=== PATIENT | female | born 1985 | race Caucasian/White ===

== ENCOUNTER 2021-02-24 01:07 | Inpatient (IN) | payer MEDICAID, OTHER ==
[~2021-02-24] VITALS: Ht 162.6 cm; Wt 125.0 kg
[2021-02-24 02:02] LABS: Basophils # (auto) 0 10 ^3/uL (0-0.2); Basophils % (auto) 0.3 % (0.0-2.0); Eosinophils # (auto) 0 10 ^3/uL (0-0.8); Eosinophils % (auto) 0.3 % (0.0-7.0); Hematocrit 41.5 % (36.0-46.0); Hemoglobin 13.9 g/dL (12.2-16.2); Lymphocytes # (auto) 2.5 10 ^3/uL (0.4-5.4); Lymphocytes % (auto) 24.6 % (10.0-50.0); Mean Corpuscular Hemoglobin 28.5 pg (28.0-32.0); Mean Corpuscular Hgb Conc. 33.4 g/dL (32.0-36.0); Mean Corpuscular Volume 85.3 fL (80.0-100.0); Monocytes # (auto) 0.7 10 ^3/uL (0-1.3); Monocytes % (auto) 6.7 % (0.0-12.0); Neutrophils # (auto) 6.9 10 ^3/uL (1.6-8.6); Neutrophils % (auto) 68.1 % (37.0-80.0); Nucleated Red Blood Cells % 0.1 %; Red Blood Cells 4.86 10^6/uL (4.0-5.20); Red Cell Distribution Width 15.9 % (11.8-14.3); White Blood Cell 10.1 10^3/uL (4.4-10.8)
[2021-02-24 02:21] LABS: Albumin 3.1 g/dL (3.4-5.0); BUN/Creatinine Ratio 13.1; Potassium 4.8 mmol/L (3.5-5.1)
[2021-02-24 02:24] LABS: Bilirubin, Total 0.1 mg/dL (0.2-1.0); Total Protein 7.2 g/dL (6.4-8.2)
[2021-02-24] MEDS ORDERED: MORPHINE SULFATE 4 MG/ML SYR/VIAL IV ONE (02:45)
[2021-02-24] MEDS ORDERED: ONDANSETRON HCL 4 MG/2 ML VIAL IV ONE (02:45)
[2021-02-24] MEDS ORDERED: SODIUM CHLORIDE 0.9% 1,000 ML IV ONE ×2 (04:30)
[2021-02-24] MEDS ORDERED: TAMSULOSIN HYDROCHLORIDE 0.4 MG CAP PO ONE ×2 (04:30→11:45)
[2021-02-24] MEDS ORDERED: HYDROcodone-ACET 5/325MG TAB PO PRN (06:15)
[2021-02-24] MEDS ORDERED: TEMAZEPAM 15 MG CAP PO PRN (06:15)
[2021-02-24] MEDS ORDERED: MORPHINE SULFATE 4 MG/ML SYR/VIAL IV PRN ×2 (06:15→12:00)
[2021-02-24] MEDS ORDERED: ACETAMINOPHEN 325 MG TAB PO PRN (06:15)
[2021-02-24] MEDS: LEVOTHYROXINE SODIUM 100 MCG TAB PO SCH (06:52)
[2021-02-24] MEDS: ONDANSETRON HCL 4 MG/2 ML VIAL IV PRN ×2 (08:22→18:12)
[2021-02-24] MEDS ORDERED: cefTRIAXone 1GM/50ML D5W 50 ML IV SCH (09:00)
[2021-02-24 09:44] LABS: Urine Bacteria FEW /hpf (None Seen); Urine Blood 3+ /uL (Negative); Urine Budding Yeast OCCASIONAL /hpf (None Seen); Urine Mucus FEW (None Seen); Urine Specific Gravity 1.024 (1.001-1.035); Urine WBC 5 /hpf (0 - 5)
[2021-02-24] MEDS ORDERED: PANTOPRAZOLE 40 MG TAB PO SCH (10:00)
[2021-02-24 10:50] VITALS: BP 135/94
[2021-02-24] MEDS ORDERED: MANNITOL 20% SOLN 100 gm/500ml 100 ML IV ONE (11:45)
[2021-02-24] MEDS: SODIUM CHLORIDE 0.9% 1,000 ML IV SCH ×2 (11:45→18:25)
[2021-02-24] MEDS: KETOROLAC TROMETH 30 MG/ML 1ML VIAL IV PRN ×2 (12:50→21:28)
[2021-02-24 13:00] VITALS: BP 114/79
[2021-02-24 17:00] VITALS: BP 139/88
[2021-02-24 22:00] VITALS: BP 112/68
[2021-02-25] MEDS: SODIUM CHLORIDE 0.9% 1,000 ML IV SCH (01:05)
[2021-02-25 05:00] VITALS: BP 119/57
[2021-02-25 05:36] LABS: Basophils # (auto) 0 10 ^3/uL (0-0.2); Basophils % (auto) 0.3 % (0.0-2.0); Eosinophils # (auto) 0 10 ^3/uL (0-0.8); Eosinophils % (auto) 0.2 % (0.0-7.0); Hematocrit 40.9 % (36.0-46.0); Hemoglobin 13.2 g/dL (12.2-16.2); Lymphocytes # (auto) 1.6 10 ^3/uL (0.4-5.4); Lymphocytes % (auto) 12.2 % (10.0-50.0); Mean Corpuscular Hemoglobin 27.7 pg (28.0-32.0); Mean Corpuscular Hgb Conc. 32.2 g/dL (32.0-36.0); Monocytes # (auto) 0.6 10 ^3/uL (0-1.3); Monocytes % (auto) 4.7 % (0.0-12.0); Neutrophils # (auto) 10.9 10 ^3/uL (1.6-8.6); Neutrophils % (auto) 82.6 % (37.0-80.0); Red Blood Cells 4.75 10^6/uL (4.0-5.20); Red Cell Distribution Width 16.2 % (11.8-14.3); White Blood Cell 13.2 10^3/uL (4.4-10.8)
[2021-02-25 05:40] LABS: BUN/Creatinine Ratio 8.7; Calcium 8.5 mg/dL (8.5-10.1); Potassium 4.6 mmol/L (3.5-5.1)
[2021-02-25] MEDS: LEVOTHYROXINE SODIUM 100 MCG TAB PO SCH (07:06)
[2021-02-25] MEDS ORDERED: TAMSULOSIN HYDROCHLORIDE 0.4 MG CAP PO SCH (18:00)
== END 2021-02-25 10:59 | disposition home or self-care (01) | DRG 465 ==
LOC: ER 01:09 → OVERFLOW 06:12 → WEST WING 10:17
PROVIDERS: ADMIT Nurse Practitioner; ATTEND Family Medicine
DX: N20.2 Calculus of kidney with calculus of ureter (principal); E03.9 Hypothyroidism, unspecified; N13.9 Obstructive and reflux uropathy, unspecified; E66.01 Morbid (severe) obesity due to excess calories; Z68.42 Body mass index [BMI] 45.0-49.9, adult; F12.90 Cannabis use, unspecified, uncomplicated; F17.210 Nicotine dependence, cigarettes, uncomplicated; N18.30 Chronic kidney disease, stage 3 unspecified; N26.1 Atrophy of kidney (terminal); Z20.822 Contact with and (suspected) exposure to COVID-19; N39.0 Urinary tract infection, site not specified; Z87.442 Personal history of urinary calculi; Z93.6 Other artificial openings of urinary tract status
CPT/HCPCS: 36415; 74176; 80048; 80053; 81001; 81025; 85025; 87426; 96361; 96365; 96375; G0378; J0696; J1885; J2405